=== PATIENT | male | born 1950 | race Caucasian/White ===

== ENCOUNTER 2016-07-12 14:35 | Emergency (ER) | payer OTHER ==
[2016-07-12] MEDS ORDERED: DEXAMETHASONE 10 MG/ML VIAL PO STA (15:32)
[2016-07-12] MEDS ORDERED: KETOROLAC 60 MG/2 ML VIAL IM STA (15:32)
[2016-07-12] MEDS ORDERED: DEXAMETHASONE 10 MG/ML VIAL ONE (15:35)
[2016-07-12] MEDS ORDERED: KETOROLAC 60 MG/2 ML VIAL ONE (15:35)
--- NOTE | 2016-07-12 15:54 | ED Physician Documentation ---
PD HPI BACK PAIN - Stated complaint Stated Complaint: BACK PX - Chief complaint Chief Complaint: Back Pain - History obtained from History obtained from: Patient, Family - History of Present Illness Timing - onset: How many days ago (3) Timing - duration: Days (3) Timing - details: Abrupt onset, Still present Location: Lower Quality: Pain, Spasm, Sharp, Similar to prior episodes Improves with: Rest Worsened by: Movement Contributing factors: Other (The patient is on hctz and he was working in the yard when symptoms began.) Similar symptoms before: Diagnosis (back spasm) Recently seen: Not recently seen - Additional information Additional information: 65 y/o male with a hx of htn is on hctz and he was outside in the sun 3 days ago working in the garden. He did not do anything extra heavy but he was stacking wood and cleaning up. He does not drink much in the way of fluids during the day. Review of Systems Constitutional: denies: Fever Eyes: denies: Decreased vision Ears: denies: Ear pain Nose: denies: Congestion Throat: denies: Sore throat Cardiac: denies: Chest pain / pressure, Palpitations Respiratory: denies: Dyspnea, Cough GI: denies: Abdominal Pain, Nausea, Vomiting : denies: Dysuria, Frequency Skin: denies: Rash Musculoskeletal: reports: Back pain. denies: Neck pain Neurologic: denies: Generalized weakness, Focal weakness, Numbness PD PAST MEDICAL HISTORY - Past Medical History Cardiovascular: Hypertension Respiratory: None Neuro: None Endocrine/Autoimmune: None GI: None : None HEENT: None Psych: None Musculoskeletal: None Derm: Other drug resistant infections - Past Surgical History Past Surgical History: Yes Ortho: Knee replacement - Present Medications Home Medications: Ambulatory Orders Medication Instructions Recorded Confirmed Lisinopril 40 mg PO DAILY 10/08/13 10/08/13 Cyclobenzaprine [Flexeril] 10 mg PO TID PRN #20 tablet 07/12/16 HYDROcod/ACETAM 5/325 [[place] 5/325] 1 - 2 ea PO Q6H PRN #15 tablet 07/12/16 hydroCHLOROthiazide [Hydrodiuril] 25 mg PO DAILY 07/12/16 07/12/16 - Allergies Allergies/Adverse Reactions: Allergies Allergy/AdvReac Type Severity Reaction Status Date / Time No Known Drug Allergies Allergy Verified 07/12/16 14:42 - Social History Does the pt smoke?: Yes Smoking Status: Current every day smoker Does the pt drink ETOH?: Yes Does the pt have substance abuse?: No PD ED PE NORMAL - Vitals Vital signs reviewed: Yes (hypertensive ) - General General: Alert and oriented X 3, Well developed/nourished - HEENT HEENT: Atraumatic, PERRL, EOMI - Neck Neck: Supple, no meningeal sign - Respiratory Respiratory: No respiratory distress - Back Back: No CVA TTP, No spinal TTP, Other (There is tenderness to the paraspinous muscles of the lower lumbar spine area at the insertion of the latissimus to the sacrum. ) - Derm Derm: Normal color, Warm and dry, No rash - Extremities Extremities: No deformity, No edema - Neuro Neuro: Alert and oriented X 3, No motor deficit, No sensory deficit, Normal speech - Psych Psych: Normal mood, Normal affect Results - Vitals Vitals: Vital Signs - 24 hr 07/12/16 14:41 Temperature 36.6 C Heart Rate 74 Respiratory 18 Rate Blood Pressure 142/93 H O2 Saturation 99 Oxygen O2 Source Room air Procedures - IVC sono (time) 1530 Bedside IVC sono: IVC measures (cm) (1.12), IVC collapsed c insp (cm) (complete) , Dehydration PD MEDICAL DECISION MAKING - ED course Complexity details: reviewed results, re-evaluated patient, considered differential, d/w patient, d/w family ED course: 65 y/o male is stiff with back pain and has lower lumbar spasm and is in pain and he is found to be dehydrated on interrogation of the IVC. He is not vomiting and I have recommended he hydrate with an additional quart of Gatorade G2. He is given decadron 10 and toradal 60mg IM. Departure - Departure Disposition: 01 Home, Self Care Clinical Impression: Back spasm, Dehydration Condition: Stable Instructions: ED Dehydration, ED Spasm Back No Trauma Follow-Up: ARMAND CRANDALL MD [Primary Care Provider] - Prescriptions: Cyclobenzaprine [Flexeril] 10 mg PO TID PRN #20 tablet PRN Reason: Spasms HYDROcod/ACETAM 5/325 [[place] 5/325] 1 - 2 ea PO Q6H PRN #15 tablet PRN Reason: Pain
[2016-07-12 16:08] VITALS: BP 128/88
== END 2016-07-12 16:19 | disposition home or self-care (01) ==
LOC: ED 14:35
DX: M54.5 Low back pain (principal); E86.0 Dehydration; I10 Essential (primary) hypertension; F17.200 Nicotine dependence, unspecified, uncomplicated
CPT/HCPCS: 96372; 99283

== ENCOUNTER 2020-09-14 17:20 | Outpatient (CLI) | payer OTHER ==
--- NOTE | 2020-09-15 09:32 | XRAY Report ---
PROCEDURE: Chest 2 View X-Ray INDICATIONS: REACTIVE AIRWAY DISEASE TECHNIQUE: 2 view(s) of the chest. COMPARISON: 10/08/2013. FINDINGS: Surgical changes and devices: None. Lungs and pleura: No pleural effusions or pneumothorax. Lungs are clear. Mediastinum: Mediastinal contours are normal. Heart size is normal. Bones and chest wall: No suspicious bony abnormalities. Soft tissues appear unremarkable. IMPRESSION: No acute cardiopulmonary disease process. Reviewed by: Jessica Burris MD, PhD on 09/15/2020 9:31 AM PDT Approved by: Jessica Burris MD, PhD on 09/15/2020 9:31 AM PDT Station ID: [id number]
== END 2020-09-14 23:59 | disposition home or self-care (01) ==
LOC: DI.S 17:20
PROVIDERS: ATTEND Emergency Medicine
DX: R06.02 Shortness of breath (principal); Z20.822 Contact with and (suspected) exposure to COVID-19; J45.909 Unspecified asthma, uncomplicated

== ENCOUNTER 2021-01-16 08:54 | Outpatient (CLI) | payer OTHER, MEDICARE ==
--- NOTE | 2021-01-18 11:46 | Ultrasound Report ---
PROCEDURE: Aorta Screening INDICATIONS: AAA SCREENING TECHNIQUE: Real time scanning was performed of the aorta and iliac arteries, with image documentatio n. COMPARISON: None FINDINGS: Aorta: Proximal aortic diameter measures 2.8 x 3.0 cm. Mid-aorta measures 1.8 x 1.7 cm. Distal aor tic diameter is 1.6 x 1.6 cm. Iliac arteries: Right common iliac artery measures 0.9 x 1.2 cm. Left common iliac artery measures 0.9 x 1.1 cm. IMPRESSION: No sonographic evidence of abdominal aortic aneurysm. Reviewed by: Jessica Burris MD, PhD on 01/18/2021 11:45 AM PST Approved by: Jessica Burris MD, PhD on 01/18/2021 11:45 AM PST Station ID: [id number]
== END 2021-01-16 08:55 | disposition home or self-care (01) ==
LOC: DI 08:54
PROVIDERS: ATTEND Physician Assistant
DX: Z13.6 Encounter for screening for cardiovascular disorders (principal); Z72.0 Tobacco use

== ENCOUNTER 2022-03-31 15:17 | Outpatient (CLI) | payer OTHER, MEDICARE ==
--- NOTE | 2022-03-31 17:11 | CT Report ---
PROCEDURE: Low Dose Lung Cancer Screen INDICATIONS: FORMER SMOKER TECHNIQUE: Noncontrast low-dose axial images were acquired from the pulmonary apices to the posterior costophren ic angles. Multiplanar MIP reformats were then reconstructed. For radiation dose reduction, the follo wing was used: automated exposure control, adjustment of mA and/or kV according to patient size. COMPARISON: None. FINDINGS: Image quality: Excellent. Lungs and pleura: No acute airspace opacities. No pulmonary nodules. Mediastinum: Heart size is normal. No pericardial effusion. No mediastinal adenopathy by size crit eria. Densely calcified mediastinal and left hilar lymph nodes are noted. Thoracic aorta and central pulmonary arteries are normal in size. Esophagus is normal in caliber. No hiatal hernia. Bones and chest wall: No suspicious bony lesions. No vertebral body compression fractures. No axil ian or supraclavicular adenopathy by size criteria. The thyroid is normal in size and there are no incidental findings. Abdomen: Visualized upper abdomen solid organs and bowel loops appear normal in the absence of contr ast. IMPRESSION: 1. No acute pulmonary findings. No suspicious pulmonary nodules or mass lesions. 2. Findings suggesting prior granulomatous infection. LI RADS 1: Annual CT surveillance recommended. Reviewed by: Demi Coffman MD on 03/31/2022 5:10 PM PST Approved by: Demi Coffman MD on 03/31/2022 5:10 PM PST Station ID: [id number]
== END 2022-03-31 15:18 | disposition home or self-care (01) ==
LOC: DI 15:17
PROVIDERS: ATTEND Physician Assistant
DX: Z12.2 Encounter for screening for malignant neoplasm of respiratory organs (principal); Z87.891 Personal history of nicotine dependence

== ENCOUNTER 2022-06-25 07:00 | Outpatient (CLI) | payer OTHER, MEDICARE ==
--- NOTE | 2022-06-25 12:53 | XRAY Report ---
PROCEDURE: Chest 2 View X-Ray INDICATIONS: PRODUCTIVE COUGH TECHNIQUE: 2 views of the chest were acquired. COMPARISON: Chest x-ray dated 09/14/2020 FINDINGS: Surgical changes and devices: None. Lungs and pleura: No pleural effusions or pneumothorax. Lungs are clear. Mediastinum: Mediastinal contours appear normal. Heart size is normal. Bones and chest wall: No suspicious bony lesions. Overlying soft tissues appear unremarkable. IMPRESSION: No acute process. Reviewed by: Rick Ortiz MD on 06/25/2022 11:52 AM ALONSO Approved by: Rick Ortiz MD on 06/25/2022 11:52 AM ALONSO Station ID: [id number]
== END 2022-06-25 23:59 | disposition home or self-care (01) ==
LOC: DI.S 07:00
PROVIDERS: ATTEND Physician Assistant
DX: R05.8 Other specified cough (principal)

== ENCOUNTER 2022-09-26 18:06 | Outpatient (CLI) | payer MEDICARE, OTHER | END 2022-09-26 23:59 | disposition critical access hospital (66) | LOC: EMS 18:06 | DX: I48.92 Unspecified atrial flutter (principal) | CPT/HCPCS: A0425; A0427 ==

== ENCOUNTER 2022-09-26 18:43 | Emergency (ER) | payer MEDICARE, OTHER ==
--- NOTE | 2022-09-26 18:56 | ED Physician Documentation ---
PD HPI DYSPNEA - Stated complaint Stated Complaint: SLURRED SPEECH - History obtained from History obtained from: Patient - Additional information Additional information: 71-year-old gentleman with no known history of heart problems. He does have a history of hypertension. The last few weeks he has had intermittent strange feelings of palpitations. Went to the office today where he was identified to be in a flutter. He states it got worse today around 430 but he has had on and off feelings of this for the last couple of weeks. He has no history of heart problems or arrhythmias. PD PAST MEDICAL HISTORY - Past Medical History Cardiovascular: Hypertension Respiratory: None Endocrine/Autoimmune: None GI: None : None HEENT: None Psych: None Musculoskeletal: None Derm: Other drug resistant infections - Past Surgical History Past Surgical History: Yes Ortho: Knee replacement - Present Medications Home Medications: Ambulatory Orders Medication Instructions Recorded Confirmed Lisinopril 40 mg PO DAILY 10/08/13 10/08/13 Cyclobenzaprine [Flexeril] 10 mg PO TID PRN #20 tablet 07/12/16 HYDROcod/ACETAM 5/325 [[place] 5/325] 1 - 2 ea PO Q6H PRN #15 tablet 07/12/16 hydroCHLOROthiazide [Hydrodiuril] 25 mg PO DAILY 07/12/16 07/12/16 Rivaroxaban [Xarelto] 20 mg PO DAILY #30 tablet 09/26/22 - Allergies Allergies/Adverse Reactions: Allergies Allergy/AdvReac Type Severity Reaction Status Date / Time No Known Drug Allergies Allergy Verified 09/26/22 19:01 - Social History Does the pt smoke?: Yes Smoking Status: Current every day smoker Does the pt drink ETOH?: Yes Does the pt have substance abuse?: No PD ED PE NORMAL - Vitals Vital signs reviewed: Yes - General General: Alert and oriented X 3, No acute distress - Cardiac Cardiac: Other (Irregularly irregular without murmur. He is rate controlled.) - Respiratory Respiratory: No respiratory distress, Clear bilaterally - Abdomen Abdomen: Non tender - Extremities Extremities: No edema, No calf tenderness / cord - Neuro Neuro: Alert and oriented X 3, Normal speech Results - Vitals Vitals: Vital Signs - 24 hr 09/26/22 18:57 Temperature 36.7 C Heart Rate 96 Respiratory 15 Rate Blood Pressure 147/106 H O2 Saturation 100 Oxygen O2 Source Room air - EKG (time done) 1850 EKG releavant findings:: EKG personally interpreted by author of this note. Relevant findings are: Rate: Rate (enter#) (95) Rhythm: Atrial flutter Intervals: Prolonged QT Ischemia: Non specific changes - Labs Labs: Laboratory Tests 09/26/22 09/26/22 09/26/22 19:01 19:01 19:01 WBC 8.7 RBC 4.33 L Hgb 14.2 Hct 41.7 L MCV 96.3 H MCH 32.8 H MCHC 34.1 RDW 12.9 Plt Count 231 MPV 8.8 Neut # (Auto) 5.3 Lymph # (Auto) 2.0 [place] # (Auto) 1.1 H Eos # (Auto) 0.2 Baso # (Auto) 0.1 Absolute Nucleated RBC 0.00 Nucleated RBC % 0.0 Sodium 138 Potassium 4.2 Chloride 107 Carbon Dioxide 24 Anion Gap 7.0 BUN 23 H Creatinine 1.5 H Estimated GFR (MDRD) 46 L Glucose 99 Calcium 10.0 Magnesium 1.5 L Total Bilirubin 0.5 AST 22 ALT 33 Alkaline Phosphatase 35 L Troponin I High Sens 9.4 Total Protein 7.2 Albumin 4.5 Globulin 2.7 Albumin/Globulin Ratio 1.7 TSH 5.38 PD Medical Decision Making - ED course ED course: 71-year-old gentleman with new onset a flutter. Initially said it started today at 430 but then stated it may have been going on as long as a couple of weeks [place] intermittently released with intermittent symptoms. Given this I do not think ED cardioversion is safe without AMY. He is rate controlled here. CBC, CMP, troponin, TSH negative/normal except for mildly depressed renal func tion. [id number] score 2 so we will start anticoagulation pending follow-up. Departure - Departure Disposition: 01 Home, Self Care Clinical Impression: Atrial fibrillation Qualifiers: Atrial fibrillation type: unspecified Qualified Code(s): I48.91 - Unspecified atrial fibrillation Condition: Good Record reviewed to determine appropriate education?: Yes Instructions: ED Paroxysmal Atrial Flutter Prescriptions: Rivaroxaban [Xarelto] 20 mg PO DAILY #30 tablet Comments: You are seen tonight for atrial flutter. Given that we cannot tell by your history how long exactly is been going on I would not be comfortable cardioverting you, since if you have been in it for more than a day or 2 this would be a significant risk factor for stroke. You should be seen by [facility] in follow-up, I anticipate they will do an echocardiogram, potentially transesophageal echocardiogram with cardioversion if able. Call your primary care physician tomorrow for referral to cardiology.
[2022-09-26 19:07] LABS: BASOPHILS # (AUTO) 0.1 10^3/uL (0.0-0.1); BASOPHILS % (AUTO) 0.6 %; EOSINOPHILS # (AUTO) 0.2 10^3/uL (0.0-0.7); EOSINOPHILS % (AUTO) 2.7 %; HCT - HEMATOCRIT 41.7 % (42.0-52.0); HGB - HEMOGLOBIN 14.2 g/dL (14.0-18.0); LYMPHOCYTES % (AUTO) 22.7 %; MEAN CORPUSCULAR HEMOGLOBIN 32.8 pg (27.0-31.0); MEAN CORPUSCULAR HGB CONC 34.1 g/dL (32.0-36.0); MEAN CORPUSCULAR VOLUME 96.3 fL (80.0-94.0); MEAN PLATELET VOLUME 8.8 fL (7.4-11.4); MONOCYTES # (AUTO) 1.1 10^3/uL (0.0-1.0); MONOCYTES % (AUTO) 12.6 %; NEUTROPHILS # (AUTO) 5.3 10^3/uL (1.5-6.6); NEUTROPHILS % (AUTO) 61.1 %; PLT - PLATELET COUNT 231 10^3/uL (130-450); RED BLOOD COUNT 4.33 10^6/uL (4.70-6.10); RED CELL DISTRIBUTION WIDTH 12.9 % (12.0-15.0); WHITE BLOOD COUNT 8.7 x10^3/uL (4.8-10.8)
--- OUTSIDE RECORDS SUMMARY | 2022-09-26 19:15 | EXTERNAL MEDICAL SUMMARY RPT | Continuity of Care Document ---
Author Name Unknown Address [address] [place] [address] Phone Organization [facility] Address [address] [place] [address] Phone Care Team Providers Care Quality Systems Engineer Name Role Phone Chet Patient Registrar, Dung Unavailable U navailable Medications date description facility 2022-09-26 00:00 sildenafil [facility] 2022-09-26 00:00 hydrochlorothiazide [facility] 2022-09-26 00:00 ASPIRIN [facility] 2022-09-26 00:00 CHOLECALCIFEROL [facility] 2022-09-26 00:00 aspirin [facility] 2022-09-26 00:00 hydrochlorothiazide [facility] 2022-09-26 00:00 ASPIRIN [facility] 2022-09-26 00:00 lisinopril [facility] 2022-09-26 00:00 sildenafil [facility] 2022-09-26 00:00 lisinopril [facility] 2022-09-26 00:00 ASPIRIN [facility] 2022-09-26 00:00 hydrochlorothiazide [facility] [place] 2022-09-26 00:00 lisinopril [facility] 2022-09-26 00:00 CHOLECALCIFEROL [facility] 2022-09-26 00:00 hydrochlorothiazide [facility] [place] 2022-09-26 00:00 aspirin [facility] 2022-09-26 00:00 sildenafil [facility] 2022-09-26 00:00 lisinopril [facility] 2022-09-26 00:00 sildenafil [facility] 2022-09-26 00:00 ASPIRIN [facility] 2022-09-26 00:00 aspirin [facility] 2022-09-26 00:00 CHOLECALCIFEROL [facility] [place] Problems date description facility 2022-09-26 00:00 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 [facility] 2022-09-26 00:00 Tobacco use disorder [facility] 2022-09-26 00:00 Unspecified essential hypertens ion [facility] 2022-09-26 00:00 Nicotine dependence [facility] [place] 2022-09-26 00:00 Essential hypertension [facility] [place] 2022-09-26 00:00 Nicotine dependence, unspecified, uncomplicated [facility] [place] 2022-09-26 00:00 Essential (primary) hypertensio n [facility] [place]
[2022-09-26 19:25] LABS: ALBUMIN 4.5 g/dL (3.2-5.5); ALBUMIN/GLOBULIN RATIO 1.7 (1.0-2.2); BILIRUBIN,TOTAL 0.5 mg/dL (0.2-1.0); CREATININE 1.5 mg/dL (0.6-1.3); MAGNESIUM 1.5 mg/dL (1.7-2.3); POTASSIUM 4.2 mmol/L (3.5-4.5); TOTAL PROTEIN 7.2 g/dL (6.4-8.9)
[2022-09-26 19:36] LABS: THYROID STIMULATING HORMONE 5.38 uIU/mL (0.34-5.60)
[2022-09-26 20:00] VITALS: BP 144/100; O2SAT 98
== END 2022-09-26 19:57 | disposition home or self-care (01) ==
LOC: EDUNIT# → ED 18:43
DX: I48.91 Unspecified atrial fibrillation (principal); I10 Essential (primary) hypertension; Z79.899 Other long term (current) drug therapy
CPT/HCPCS: 36415; 80053; 83735; 84443; 84484; 85025; 93005; 99284